=== PATIENT | female | born 1970 | race Caucasian/White ===

== ENCOUNTER 2017-12-28 03:07 | Emergency (ER) | payer MEDICARE ==
[2017-12-28 03:54] LABS: APPEARANCE CLEAR (CLEAR); BILIRUBIN NEGATIVE (NEGATIVE); COLOR STRAW (YELLOW); GLUCOSE 1000 mg/dL (NEGATIVE); KETONE NEGATIVE (NEGATIVE); NITRITE NEGATIVE (NEGATIVE); PROTEIN NEGATIVE (NEGATIVE); SPECIFIC GRAVITY 1.005 (1.005-1.020); UROBILINOGEN NORMAL (NORMAL)
[2017-12-28 03:54] LABS: HEMATOCRIT 37.5 % (36.0-48.0); HEMOGLOBIN 12.9 g/dL (12-16); LYMPHOCYTES 43.4 % (15-50); MCH 30.1 pg (26.0-34.0); MCHC 34.4 g/dL (31.0-37.0); MCV 87.6 fL (80.0-100.0); MEAN PLATELET VOLUME 11.4 fL (7.4-10.4); NEUTROPHILS 50.7 % (40-80); PLATELET COUNT 359 10x3/uL (130-400); RBC 4.28 10x6/uL (4.00-5.40); RDW 13.1 % (11.5-14.5); WBC 11.9 10x3/uL (4.8-10.8)
[2017-12-28 04:08] LABS: ALBUMIN 3.4 g/dL (3.4-5.0); ANION GAP 18.6 mmol/L (8-16); BILIRUBIN - TOTAL 0.3 mg/dL (0.2-1.3); CARBON DIOXIDE 21.4 mmol/L (21.0-32.0); CREATININE - SERUM 1.2 mg/dL (0.6-1.3)
== END 2017-12-28 09:10 | disposition home or self-care (01) ==
LOC: D.ER 03:07
PROVIDERS: Family Medicine
DX: E11.65 Type 2 diabetes mellitus with hyperglycemia (principal)